=== PATIENT | male | born 1990 | race Caucasian/White ===

== ENCOUNTER 2021-03-03 19:14 | Emergency (ER) | payer BC ==
[~2021-03-03] VITALS: Ht 170.2 cm; Wt 61.2 kg
[~2021-03-03 19:14] MED LIST: ERYTHROMYCIN E3.5 G1 OPHTHALMIC; ULTRAM 50MG TAB50 MG PO
[2021-03-03 19:35] VITALS: BP 111/84
[2021-03-03] MEDS ORDERED: FLEXERIL PO (19:41)
== END 2021-03-03 19:46 | disposition home or self-care (01) ==
LOC: M.ERS 19:14
DX: S09.90XA Unspecified injury of head, initial encounter (principal); V89.2XXA Person injured in unspecified motor-vehicle accident, traffic, initial encounter; Y93.89 Activity, other specified; Y92.89 Other specified places as the place of occurrence of the external cause; Y99.8 Other external cause status